=== PATIENT | male | born 1975 | race Caucasian/White ===

== ENCOUNTER 2019-11-05 13:41 | Emergency (ER) | payer MEDICAID ==
[~2019-11-05] VITALS: Ht 170.2 cm; Wt 79.8 kg
[2019-11-05 15:08] LABS: BASOPHIL % 0.7 % (0-2); PLATELET COUNT 115 x10^3mcL (130-400); RED CELL DISTRIBUTION WIDTH 13.2 % (11.5-14.5)
[2019-11-05 15:59] VITALS: BP 145/97
[2019-11-05 16:09] LABS: CALCIUM 8.9 mg/dL (8.5-10.1); CARBON DIOXIDE 26.1 mmol/L (21-32); CHLORIDE SERUM 105 mmol/L (98-107); CREATININE SERUM 0.8 mg/dL (0.7-1.3); GFR1 > 60 mL/min; GLUCOSE SERUM 143 mg/dL (74-106); POTASSIUM SERUM 4.3 mmol/L (3.5-5.1); SODIUM SERUM 141 mmol/L (136-145)
[2019-11-05 16:14] LABS: ALKALINE PHOSPHATASE 107 U/L (46-116); ALT/SGPT 116 U/L (16-63); AST/SGOT 43 U/L (15-37); BILIRUBIN TOTAL 0.2 mg/dL (0.20-1.00)
== END 2019-11-05 18:55 | disposition home or self-care (01) ==
LOC: ED 13:41
PROVIDERS: Emergency Medicine
DX: R07.89 Other chest pain (principal); R42 Dizziness and giddiness
CPT/HCPCS: 36415; J8597